=== PATIENT | male | born 1990 | race American Indian/Alaskan Native ===

== ENCOUNTER 2017-04-24 14:11 | Emergency (ER) | payer OTHER ==
[2017-04-24 14:25] VITALS: BP 112/83
[2017-04-24] MEDS ORDERED: MOTRIN PO ONE (16:25)
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
== END 2017-04-24 18:31 | disposition home or self-care (01) ==
LOC: ED 14:11
DX: S13.4XXA Sprain of ligaments of cervical spine, initial encounter (principal); F17.200 Nicotine dependence, unspecified, uncomplicated; V89.2XXA Person injured in unspecified motor-vehicle accident, traffic, initial encounter; Y93.89 Activity, other specified; Y99.8 Other external cause status; Y92.488 Other paved roadways as the place of occurrence of the external cause
CPT/HCPCS: 72072

== ENCOUNTER 2018-05-25 16:47 | Emergency (ER) | payer SELFPAY ==
[2018-05-25 17:00] VITALS: BP 121/79
== END 2018-05-25 19:30 | disposition left against medical advice (07) ==
LOC: ED 16:47
DX: T14.8XXA Other injury of unspecified body region, initial encounter (principal); Z53.21 Procedure and treatment not carried out due to patient leaving prior to being seen by health care provider

== ENCOUNTER 2018-11-06 19:32 | Emergency (ER) | payer OTHER ==
--- NOTE | 2018-11-07 01:02 | Emergency Department Report ---
Addendum entered and electronically signed by EMERSON TOBIAS PA 11/07/18 01:05: Wound was cleaned with antebrachial soap and water and dressed with antimicrobials dressing as well. Patient was educated on wound management. Been advised to follow-up emergency department should he develop any fever, cellulitis, lymphangitis or anything to suggest symptoms or worsening. Original Note: ED Animal Bite HPI - General Chief Complaint: Animal Bite Stated Complaint: DOG BITE Time Seen by Provider: 11/07/18 00:15 Source: patient Mode of arrival: Ambulatory Limitations: No Limitations - History of Present Illness Initial Comments: 27-year-old male was with his dogs earlier this morning trying to break them up when his hand with was was bitten around 6 AM. States that it caused him to miss work and he presents emergency department seeking a work note and to have his wounds evaluated. Reports no significant pain, has some mild swelling to the area. A dull throb. Reports no numbness or tingling. Has full range of motion of his hands with no limitations. Reports no loss of blood. MD Complaint: animal bite -: Gradual Right: Hand Animal: dog Animal Control Notified: No Description: household pet Pain Description: dull Associated Symptoms: none. denies: discharge from wound, bleeding, rash, loss of consciousness, cough, diaphoresis, shortness of breath - Related Data Patient Tetanus UTD: No Previous Rx's Medication Instructions Recorded Last Taken Type Cyclobenzaprine [Flexeril] 10 mg PO TID PRN #15 tablet 04/24/17 Unknown Rx Ibuprofen [Motrin 600 MG tab] 600 mg PO Q8H PRN #20 tablet 04/24/17 Unknown Rx Amoxicillin/Potassium Clav 1 each PO BID #20 tablet 11/07/18 Unknown Rx [Augmentin 875-125 Tablet] Chlorhexidine Gluconate [Hibiclens] 10 ml TP BID #240 liquid 11/07/18 Unknown Rx Allergies Allergy/AdvReac Type Severity Reaction Status Date / Time No Known Allergies Allergy Unverified 04/24/17 14:25 ED Review of Systems ROS: Stated complaint: DOG BITE Other details as noted in HPI Constitutional: denies: chills, fever Eyes: denies: eye pain, eye discharge, vision change ENT: denies: ear pain, throat pain Respiratory: denies: cough, shortness of breath, wheezing Cardiovascular: denies: chest pain, palpitations Endocrine: no symptoms reported Gastrointestinal: denies: abdominal pain, nausea, diarrhea Genitourinary: denies: urgency, dysuria Musculoskeletal: denies: back pain, joint swelling, arthralgia Skin: denies: rash, lesions Neurological: denies: headache, weakness, paresthesias Psychiatric: denies: anxiety, depression Hematological/Lymphatic: denies: easy bleeding, easy bruising ED Past Medical Hx - Past Medical History Previous Medical History?: No - Surgical History Past Surgical History?: No - Social History Smoking Status: Current Some Day Smoker Substance Use Type: None - Medications Home Medications: Home Medications Medication Instructions Recorded Confirmed Last Taken Type Cyclobenzaprine [Flexeril] 10 mg PO TID PRN #15 tablet 04/24/17 Unknown Rx Ibuprofen [Motrin 600 MG tab] 600 mg PO Q8H PRN #20 tablet 04/24/17 Unknown Rx Amoxicillin/Potassium Clav 1 each PO BID #20 tablet 11/07/18 Unknown Rx [Augmentin 875-125 Tablet] Chlorhexidine Gluconate [Hibiclens] 10 ml TP BID #240 liquid 11/07/18 Unknown Rx ED Physical Exam - General Limitations: No Limitations General appearance: alert, in no apparent distress - Head Head exam: Present: atraumatic, normocephalic, normal inspection - Eye Eye exam: Present: normal appearance, PERRL, EOMI. Absent: scleral icterus, conjunctival injection, periorbital swelling Pupils: Present: normal accommodation - ENT ENT exam: Present: normal exam, normal orophraynx, mucous membranes moist, TM's normal bilaterally, normal external ear exam - Neck Neck exam: Present: normal inspection, full ROM. Absent: tenderness, meningismus - Respiratory Respiratory exam: Present: normal lung sounds bilaterally. Absent: respiratory distress, wheezes, rales, rhonchi, chest wall tenderness, decreased breath sounds - Cardiovascular Cardiovascular Exam: Present: regular rate, normal rhythm. Absent: systolic murmur, diastolic murmur, rubs, gallop - GI/Abdominal GI/Abdominal exam: Present: soft, normal bowel sounds - Rectal Rectal exam: Present: deferred - Extremities Exam Extremities exam: Present: normal inspection, full ROM, normal capillary refill - Back Exam Back exam: Present: normal inspection, muscle spasm. Absent: CVA tenderness (R), CVA tenderness (L) - Neurological Exam Neurological exam: Present: alert, oriented X3, CN II-XII intact, normal gait - Psychiatric Psychiatric exam: Present: normal affect, normal mood - Skin Skin exam: Present: warm, dry, intact, normal color. Absent: rash ED Course Vital Signs 11/06/18 19:58 Temperature 97.8 F Pulse Rate 58 L Respiratory 18 Rate Blood Pressure 130/82 O2 Sat by Pulse 99 Oximetry Critical care attestation.: If time is entered above; I have spent that time in minutes in the direct care of this critically ill patient, excluding procedure time. ED Disposition Clinical Impression: Dog bite Disposition: DC-01 TO HOME OR SELFCARE Is pt being admited?: No Does the pt Need Aspirin: No Condition: Stable Instructions: Animal Bite (ED) Prescriptions: Amoxicillin/Potassium Clav [Augmentin 875-125 Tablet] 1 each PO BID #20 tablet Chlorhexidine Gluconate [Hibiclens] 10 ml TP BID #240 liquid Referrals: WANDA HENRY MD [Primary Care Provider] - 3-5 Days
== END 2018-11-07 01:20 | disposition home or self-care (01) ==
LOC: ED 19:32
CPT/HCPCS: 99282